=== PATIENT | female | born 1985 | race Caucasian/White ===

== ENCOUNTER → 2021-02-18 | Outpatient (CLI) | payer BC ==
[2021-02-18 10:20] LABS: HEMOGLOBIN 14.5 gm/dl (12.3-15.3); RED BLOOD COUNT 4.64 M/UL (4.00-5.10)
[2021-02-18 10:43] LABS: BUN/CREATININE RATIO 25 (0-10)
== END ==
LOC: CT 10:01
PROVIDERS: Emergency Medicine
DX: R30.0 Dysuria (principal); R10.9 Unspecified abdominal pain; I10 Essential (primary) hypertension; R31.9 Hematuria, unspecified; N20.0 Calculus of kidney; K76.0 Fatty (change of) liver, not elsewhere classified
CPT/HCPCS: 80053; 81001; 84439; 84443; 85025; 87086

== ENCOUNTER → 2021-03-05 | Outpatient (CLI) | payer OTHER | LOC: LAB 05:52 | DX: Z20.822 Contact with and (suspected) exposure to COVID-19 (principal) | CPT/HCPCS: U0002 ==